=== PATIENT | female | born 1955 | race Asian ===

== ENCOUNTER 2024-10-19 06:27 | Day surgery (SDC) | payer OTHER ==
[~2024-10-19] VITALS: Ht 144.8 cm; Wt 36.4 kg
[2024-10-19] MEDS ORDERED: SODIUM CHLORIDE 0.9% 1,000 ML ONE (06:35)
[2024-10-19] MEDS: SODIUM CHLORIDE 0.9% 1,000 ML IV ONE (07:18)
[2024-10-19 07:46] LABS: GLUCOMETER DEV NAME(LOC) SDS.; GLUCOSE,POINT OF CARE 111 MG/DL (70-110)
[2024-10-19] MEDS ORDERED: FentaNYL CITRATE PF 100 MCG/2 ML VIAL ONE (08:22)
[2024-10-19] MEDS ORDERED: MIDAZOLAM HCL 2 MG/2 ML VIAL ONE (08:22)
[2024-10-19] MEDS ORDERED: CINA30TA32 PO (08:40)
[2024-10-19] MEDS ORDERED: APIX5TAB PO (08:40)
[2024-10-19] MEDS ORDERED: TACR1CAP12 PO (08:40)
[2024-10-19] MEDS ORDERED: LABE200T56 PO (08:40)
[2024-10-19] MEDS ORDERED: LINA5TAB PO (08:40)
[2024-10-19] MEDS ORDERED: ATOR40TA28 PO (08:40)
[2024-10-19] MEDS ORDERED: PRED-549 PO (08:40)
[2024-10-19] MEDS ORDERED: AMLO-257 PO (08:40)
[2024-10-19 09:20] VITALS: PULSE 60; RESP 16; O2SAT 100
[2024-10-19] MEDS ORDERED: LIDOCAINE 4% 50 ML SOLUTION ONE (12:00)
[2024-10-19] MEDS ORDERED: BENZOCAINE 20% 50 MCG/SPRAY 57 GM ONE (12:00)
[2024-10-19] MEDS ORDERED: ALBUTEROL SULFATE 2.5 MG/0.5 ML NEB SOLUTION NEB ONE (12:00)
[2024-10-19] MEDS ORDERED: LIDOCAINE 2% 11 ML JELLY ONE (12:00)
== END 2024-10-19 12:45 | disposition home or self-care (01) ==
LOC: SDS 06:27 → EDSEX 09:30 → SDS 12:45
PROVIDERS: ATTEND Internal Medicine Critical Care Medicine
DX: R05.3 Chronic cough (principal); J38.4 Edema of larynx; B37.0 Candidal stomatitis; Z79.899 Other long term (current) drug therapy; I10 Essential (primary) hypertension; Z98.890 Other specified postprocedural states; E11.9 Type 2 diabetes mellitus without complications
CPT/HCPCS: 31623; 82962; 87206; 87101; 87220; 87070; 88108; 87186; 31624; 94640; 71045; 87015; J3010; J2250; J2919; J7030; J7613; Z7610